=== PATIENT | male | born 1940 | race Caucasian/White ===

== ENCOUNTER 2018-01-20 11:23 | Emergency (ER) | payer MEDICARE ==
[2018-01-20] MEDS: IV NORMAL SALINE 1000ML BAG 1,000 ML IV (11:59)
[2018-01-20] MEDS: KETOROLAC 30 MG/ML INJ. IV (11:59)
[2018-01-20 12:00] LABS: ADD MAN DIFF? NO
[2018-01-20 12:03] LABS: BASO % 0 % (0-3); EOS # 0.2 x10^3/uL (0.0-0.7); EOS % 2 % (0-3); HEMOGLOBIN 17.3 g/dL (13.0-17.5); LYMPH # 0.8 x10^3/uL (1.0-4.8); LYMPH % 8 % (24-48); MEAN CORPUSCULAR HEMOGLOBIN 32 pg (25-35); MEAN CORPUSCULAR HGB CONC 35 g/dL (31-37); MEAN CORPUSCULAR VOLUME 91 fL (79-100); MONO # 0.9 x10^3/uL (0.0-1.1); MONO % 8 % (0-9); NEUT # 8.8 x10^3uL (1.8-7.7); NEUT % 82 % (31-73); PLATELET COUNT 165 x10^3/uL (140-400); RED BLOOD COUNT 5.48 x10^6/uL (4.30-5.70); RED CELL DISTRIBUTION WIDTH 13.4 % (11.5-14.5); WHITE BLOOD COUNT 10.7 x10^3/uL (4.0-11.0)
[2018-01-20 12:11] LABS: ANION GAP 6 (6-14); BLOOD UREA NITROGEN 16 mg/dL (8-26); CALCIUM 8.4 mg/dL (8.5-10.1); CARBON DIOXIDE 29 mmol/L (21-32); CHLORIDE 104 mmol/L (98-107); CREATININE 0.9 mg/dL (0.7-1.3); GFR 81.8; GLUCOSE 96 mg/dL (70-99); POTASSIUM 4.3 mmol/L (3.5-5.1); SODIUM 139 mmol/L (136-145)
[2018-01-20 12:38] LABS: BILIRUBIN,URINE NEGATIVE (NEG); CLARITY,URINE CLEAR; COLOR,URINE YELLOW; GLUCOSE,URINE NEGATIVE (NEG); NITRITE,URINE NEGATIVE (NEG); PROTEIN,URINE NEGATIVE (NEG-TRACE); UROBILINOGEN,URINE 0.2 mg/dL (0.2 mg/dL)
[2018-01-20 12:55] LABS: BACTERIA,URINE 0 /HPF (0-FEW); RBC,URINE 0 /HPF (0-2); SQUAMOUS EPITHELIAL CELL,UR OCC /LPF; WBC,URINE 0 /HPF (0-4)
== END 2018-01-20 14:19 | disposition home or self-care (01) ==
LOC: ER 11:23
DX: K57.90 Diverticulosis of intestine, part unspecified, without perforation or abscess without bleeding (principal); N40.0 Benign prostatic hyperplasia without lower urinary tract symptoms; I48.92 Unspecified atrial flutter; I25.10 Atherosclerotic heart disease of native coronary artery without angina pectoris; J90 Pleural effusion, not elsewhere classified; I31.3 Pericardial effusion (noninflammatory); Z88.1 Allergy status to other antibiotic agents; Z88.5 Allergy status to narcotic agent; Z88.8 Allergy status to other drugs, medicaments and biological substances
CPT/HCPCS: 36415; 74176; 80048; 81001; 85025; 96374; 99285-25; J1885; J7030

== ENCOUNTER → 2021-10-31 | Outpatient (CLI) | payer MEDICARE ==
[2018-01-20 14:10] VITALS: BP 140/64
[~2021-10-31] MED LIST: ASPI-630 PO; ASPI325T8 PO; DILT120C99 PO; DOXA8TAB59 PO; IBUP-1060 PO; PROP150T PO; TRAM50TA PO
--- NOTE | 2021-10-31 08:46 | RAD ---
MR#: [id number] Date of Study: 10/31/2021 Ordering Physician: RIDDHI MARR, Referring Physician: RIDDHI MARR, Tech: Srinivasa Le MBA, RDMS, RVT, RDCS, RTR APPROVED REPORT Patient Location: OUT-PATIENT Laterality:Bilateral Indications CAROTID STENOSIS Doppler Spectral Velocity Analysis Right Left pCCA 163/14 cm/spCCA 140/13 cm/s mCCA 152/21 cm/smCCA 142/16 cm/s dCCA 112/15 cm/sdCCA 131/19 cm/s Bulb 61/15 cm/sBulb 107/16 cm/s ECA 163/ cm/sECA 167/ cm/s pICA 98/21 cm/spICA 75/15 cm/s Chace 90/19 cm/smICA 84/19 cm/s dICA 106/28 cm/sdICA 88/18 cm/s Vert. 53/ cm/sVert. 83/ cm/s Subcl. 214/ cm/sSubcl. 182/ cm/s ICA/CCA 0.65ICA/CCA 0.63 Findings Grayscale images of bilateral extracranial carotid arteries showed mild to moderate atherosclerotic p laquing in the carotid bifurcations bilaterally. Spectral waveform and color duplex analysis showed slightly increased peak systolic velocities in common carotid arteries bilaterally but with normal en d-diastolic velocities. The internal carotid arteries bilaterally showed normal velocities. This is suggestive of 0 to less than 50% stenosis. The external carotid arteries bilaterally showed increas ed velocities consistent with moderate stenosis. The ICA to CCA ratios were within normal limits. T he vertebral arteries bilaterally showed antegrade flow with normal velocities. No significant carot id artery stenosis was noted. Critical Notification Critical Value: No <Conclusion> Carotid arterial duplex scan did not show any significant carotid artery stenosis. Signed by : Alfonso Camejo, Electronically Approved : 10/31/2021 08:45:17
--- NOTE | 2021-10-31 16:55 | CARD ---
MR#: [id number] Date of Study: 10/31/2021 Ordering Physician: RIDDHI MARR, Referring Physician: RIDDHI MARR, Tech: [facility],RVT APPROVED REPORT EXAM: Two-dimensional and M-mode echocardiogram with Doppler and color Doppler. Other Information Quality : GoodHR: 53bpm Rhythm : NSR INDICATION Syncope 2D DIMENSIONS RVDd4.2 (2.9-3.5cm)Left Atrium(2D)4.5 (1.6-4.0cm) IVSd0.8 (0.7-1.1cm)Aortic Root(2D)3.4 (2.0-3.7cm) LVDd5.3 (3.9-5.9cm)LVOT Diameter2.2 (1.8-2.4cm) PWd1.3 (0.7-1.1cm)LVDs3.0 (2.5-4.0cm) FS (%) 43.4 %SV100.9 ml LVEF(%)74.1 (>50%) Aortic Valve AoV Peak Gurmeet.124.7cm/sAoV VTI29.4cm AO Peak GR.6.2mmHgLVOT Peak Gurmeet.102.2cm/s LVOT VTI 26.73cmAO Mean GR.4mmHg HEMANTH (VMAX)2.11fo3HPB (VTI)3.57cm2 Mitral Valve MV E Gapvjpao71.4cm/sMV DECEL [id number] MV A Flbcovse53.9cm/sMV FTK59ga E/A Ratio0.9MVA (PHT)3.39cm2 TDI E/Lateral E'7.1E/Medial E'7.9 Pulmonary Valve PV Peak Iiocxkln491.1cm/sPV Peak Grad.5mmHg Tricuspid Valve TR P. Enthujyp872pg/sRAP QDHHPQUC1nnDs TR Peak Gr.61boBdEXTX39suUd Pulmonary Vein S1 Clqbfgiu52.8cm/sD2 Nucdxjua43.7cm/s PVa pbqfisxq568wfvf LEFT VENTRICLE The left ventricle is normal size. There is normal left ventricular wall thickness. The left ventricu lar systolic function is normal. The ejection fraction is 55-60%. There is normal LV segmental wall m otion. Transmitral Doppler flow pattern is Grade I-abnormal relaxation pattern. No left ventricle thr ombus noted on this study. There is no ventricular septal defect visualized. There is no left ventric ular aneurysm. There is no mass noted in the left ventricle. RIGHT VENTRICLE The right ventricle is normal size. There is normal right ventricular wall thickness. The right ventr icular systolic function is normal. ATRIA The left atrium size is normal. The right atrium size is normal. The interatrial septum is intact wit h no evidence for an atrial septal defect or patent foramen ovale as noted on 2-D or Doppler imaging. AORTIC VALVE The aortic valve is normal in structure and function. No aortic regurgitation is present. There is no aortic valvular stenosis. There is no aortic valvular vegetation. MITRAL VALVE The mitral valve is normal in structure and function. There is no evidence of mitral valve prolapse. There is no mitral valve stenosis. Doppler and Color Flow revealed mild mitral regurgitation. TRICUSPID VALVE The tricuspid valve is normal in structure and function. Doppler and Color Flow revealed mild tricusp id regurgitation. The pulmonary artery systolic pressure is estimated 27 mmHg. There is no tricuspid valve prolapse or vegetation. There is no tricuspid valve stenosis. PULMONIC VALVE The pulmonary valve is normal in structure and function. There is no pulmonic valvular regurgitation. There is no pulmonic valvular stenosis. GREAT VESSELS The aortic root is normal in size. The ascending aorta is normal in size. The pulmonary artery is nor mal. The IVC was not visualized. PERICARDIAL EFFUSION There is no pleural effusion. There is no evidence of significant pericardial effusion. Critical Notification Critical Value: No <Conclusion> The left ventricular systolic function is normal. The ejection fraction is 55-60%. There is normal LV segmental wall motion. Transmitral Doppler flow pattern is Grade I-abnormal relaxation pattern. Mild mitral regurgitation. Mild tricuspid regurgitation. The pulmonary artery systolic pressure is estimated 27 mmHg. There is no evidence of significant pericardial effusion. Signed by : Alfonso Camejo, Electronically Approved : 10/31/2021 16:55:12
== END ==
LOC: US 07:41
PROVIDERS: ATTEND Internal Medicine Cardiovascular Disease
DX: I08.1 Rheumatic disorders of both mitral and tricuspid valves (principal); I65.23 Occlusion and stenosis of bilateral carotid arteries; I48.0 Paroxysmal atrial fibrillation
CPT/HCPCS: 93306; 93880; C8929